=== PATIENT | male | born 1965 | race Caucasian/White ===

== ENCOUNTER 2020-11-30 23:06 | Emergency (ER) | payer BC, SELFPAY ==
[2020-11-30 23:32] VITALS: BP 180/115; PULSE 74; RESP 16; TEMP 36.8; O2SAT 98; BMI 31.4
--- NOTE | 2020-12-01 00:20 | ED_ITS ---
HPI - Animal Bite General Chief Complaint: Animal Bite Stated Complaint: DOG BITE Time Seen by Provider: 12/01/20 00:17 Source: patient Mode of arrival: ambulatory History of Present Illness HPI narrative: This is a 55-year-old male who presents after sustaining a dog bite to his left forearm that was his own personal dog, states dog is up-to-date on all vaccines, was trying to clip the nails and the dog struck out. He states he is up-to-date with his tetanus. Related Data Home Medications Medication Instructions Recorded Confirmed amlodipine 1 tab PO DAILY 11/30/20 11/30/20 atorvastatin 1 tab PO DAILY 11/30/20 11/30/20 labetalol tab PO 11/30/20 11/30/20 losartan 1 tab PO DAILY 11/30/20 11/30/20 Previous Rx's Medication Instructions Recorded amoxicillin-pot clavulanate 1 tab PO Q12H 5 Days #10 tab 12/01/20 [Augmentin] Allergies Allergy/AdvReac Type Severity Reaction Status Date / Time monosodium glutamate [MSG] Allergy Unknown HEADACHES Unverified 08/18/20 17:03 Review of Systems Review of Systems: Ten point review systems otherwise negative PMFSH Past Medical History Source: nursing notes reviewed Medical History HTN (hypertension) Stroke Social History Social History Advance Directives: No Physical Exam Vital Signs: Vital Signs: Last Vital Signs Temp 98.2 F 11/30/20 23:32 Pulse 74 11/30/20 23:32 Resp 16 11/30/20 23:32 BP 180/115 H 11/30/20 23:32 Pulse Ox 98 11/30/20 23:32 Body Mass Index 31.4 VITAL SIGNS: Reviewed. GENERAL: Well developed, well nourished, in no acute distress. NECK: Supple, no adenopathy LUNGS: Normal breath sounds. No adventitious sounds or accessory muscle use. S pO2<> CARDIOVASCULAR: Regular rate and rhythm without noted murmurs, no JVD or lower extremity edema. ABDOMEN: Soft, non-tender, non-distended with bowel sounds. No rigidity. No guarding. No palpable masses or hernias noted LEFT ARM: There is a 6 cm laceration perpendicular to line across the left dorsal forearm that is currently hemostatic, patient has complete range of motion, capillary refill is less than 3 seconds, neurovascularly intact otherwise distally. There is a noted contusion on the ventral surface of the forearm corresponding to where the dog bit the patient. NEUROLOGIC: Alert and oriented x 4. Course Course Course Narrative: Is a 55-year-old male with history and clinical presentation consistent with dog bite resulting in laceration of the left forearm and was provided with analgesics and is bite was repaired. Tetanus is up-to-date. Patient was discharged in stable condition with instructions to follow-up for suture removal in 5-7 days. Procedures Laceration Laceration 1: Site: upper extremity Side (If applicable): left Size (cm): 6 Description: linear Depth: involves muscle layer Local Anesthetic: lidocaine 2% and with epi Amount of anesthesia used (mL): 5 Pre-repair: wound explored, irrigated extensively and deep structures intact Skin layer closed with: nylon Size (cm): 4-0 Number of sutures: 7 Technique: simple, interrupted Subcutaneous layer closed with: vicryl Size: 4-0 Number of sutures: 4 Technique: simple, interrupted Discharge Plan Discharge Clinical Impression: Dog bite Qualifiers: Encounter type: initial encounter Qualified Code(s): W54.0XXA - Bitten by dog, initial encounter Patient Disposition: Home, Self-Care Instructions: Animal Bite (ED), Care For Your Stitches (ED), Laceration (ED) Additional Instructions: 1. Tylenol 1000 mg, orally, every 6 hours as needed for pain control. Do not exceed 4000 mg within 24 hours. 2. Ibuprofen 400 mg, orally with milk or food, every 6 hours as needed for pain control. You may take this along with the Tylenol for additional pain control. 3. Leave the dressing in place for 24 hours and then on removal he you are free to cleanse with soap and water, apply antibiotic ointment and recover with gauze or a large Band-Aid. 4. You will need to return to either your primary care provider or back to this emergency department for the removal of 7 sutures in 5-7 days. 5. Please return to the emergency department should she notice any swelling, discharge, or develops fevers/chills. Prescriptions: New amoxicillin-pot clavulanate [Augmentin] 875-125 mg tablet 1 tab PO Q12H 5 Days Qty: 10 RF: 0 No Action losartan 50 mg tablet 1 tab PO DAILY RF: 0 atorvastatin 80 mg tablet 1 tab PO DAILY RF: 0 labetalol 200 mg tablet PO RF: 0 amlodipine 10 mg tablet 1 tab PO DAILY RF: 0 Referrals: Renae Ace MD [Primary Care Provider] - 2 days (Removal of 7 sutures and 5-7 days.)
[2020-12-01] MEDS: Acetaminophen 325 MG TABLET 975 MG PO (00:40)
[2020-12-01] MEDS: Lidocaine HCl 2%/Epi 1:100,000 20 ML VIAL INFILTRATI (00:40)
[2020-12-01] MEDS: Ketorolac Tromethamine 15 MG/ML VIAL IM (00:40)
== END 2020-12-01 01:52 | disposition home or self-care (01) ==
PROVIDERS: Emergency Provider Student in an Organized Health Care Education/Training Program; PCP Internal Medicine
DX: S51.812A Laceration without foreign body of left forearm, initial encounter (principal); S50.12XA Contusion of left forearm, initial encounter; W54.0XXA Bitten by dog, initial encounter; Y93.F9 Activity, other caregiving; Y92.019 Unspecified place in single-family (private) house as the place of occurrence of the external cause; Y99.9 Unspecified external cause status
CPT/HCPCS: 12044; 90471; 96372; 99283; 99284; J1885

== ENCOUNTER 2024-03-18 16:11 | Emergency (ER) | payer OTHER, SELFPAY ==
[2024-03-18 16:13] VITALS: BP 223/115; PULSE 66; RESP 18; TEMP 36; O2SAT 97; BMI 30.7
--- NOTE | 2024-03-18 16:14 | ECG_ITS ---
Test Reason : high bp Blood Pressure : / mmHG Vent. Rate : 064 BPM Atrial Rate : 064 BPM P-R Int : 170 ms QRS Dur : 102 ms QT Int : 424 ms P-R-T Axes : 044 026 025 degrees QTc Int : 437 ms Normal sinus rhythm Normal ECG When compared with ECG of 12-OCT-2017 09:09, No significant changes seen Referred By: Esther Greenwood Electronically Signed By:ASHELY WADDELL
--- NOTE | 2024-03-18 16:17 | ED.GENADULT ---
HPI - General Adult General Chief complaint: General Medical Stated complaint: high blood pressure Time Seen by Provider: 03/18/24 22:06 Source: patient and family (Spouse) Mode of arrival: ambulatory Limitations: no limitations History of Present Illness HPI narrative: 58-year-old male with history of HTN since he was young for many years, patient is not compliant with his blood pressure medication for a year, went today for annual check with his physician and found to have a high value of BP then patient was sent to the ER for further evaluation, patient was prescribed nifedipine by PCP to his pharmacy that the patient did not pick it up, patient at this point has no headache, no blurry vision, no CP, no SOB, no abdominal pain, no weakness, no numbness. Patient admit to eating salty food and having unhealthy lifestyle with no exercising. Related Data Home Medications ?Medication ?Instructions ?Recorded ?Confirmed amlodipine 10 mg tablet 1 tab PO DAILY 11/30/20 11/30/20 atorvastatin 80 mg tablet 1 tab PO DAILY 11/30/20 11/30/20 labetalol 200 mg tablet tab PO 11/30/20 11/30/20 losartan 50 mg tablet 1 tab PO DAILY 11/30/20 11/30/20 Previous Rx's ?Medication ?Instructions ?Recorded amoxicillin 875 mg-potassium 1 tab PO Q12H 5 days #10 tabs 12/01/20 clavulanate 125 mg tablet (Augmentin) Allergies Allergy/AdvReac Type Severity Reaction Status Date / Time monosodium glutamate [MSG] Allergy Unknown HEADACHES Verified 03/18/24 16:18 Review of Systems Review of Systems: All other systems are reviewed and are negative Constitutional: Reports as per HPI and Reports no additional constitutional complaints Eyes: Reports as per HPI and Reports no additional eye complaints Reports system reviewed and no additional complaints, except as documented Cardiovascular: Reports as per HPI and Reports no additional cardiovascular complaints Respiratory: Reports as per HPI and Reports no additional respiratory complaints Gastrointestinal: Reports as per HPI and Reports no additional gastrointestinal complaints Genitourinary: Reports no additional female genitourinary complaints Musculoskeletal: Reports no additional musculoskeletal complaints Skin/Breast: Reports system reviewed and no additional complaints, except as docu Psychiatric: Reports no additional psychiatric complaints Endocrine: Reports no additional endocrine complaints Hematologic/Lymphatic: Reports no additional hematologic/lymphatic complaints Allergic/Immunologic: Reports no additional allergic/immunologic complaints Reports system reviewed and no additional complaints, except as documented and Reports Abnormal speech present FORMERLY [facility], [facility] Past Medical History Medical History Stroke HTN (hypertension) Social History Social History Smoked in Last 30 Days: No Use of substances other than those prescribed or required for medical reasons: Yes Substance Use Type: Marijuana Advance Directives: No Advance Directives Information Provided: No Physical Exam ED Vital Signs: Vital Signs - 24 hr 03/18/24 16:13 03/18/24 20:11 03/18/24 20:16 Temperature 96.8 F 98.7 F Pulse Rate 66 54 Respiratory Rate 18 16 Blood Pressure 223/115 H 223/109 H 225/119 H Pulse Oximetry 97 97 Oxygen Delivery Method Room Air Room Air 03/18/24 23:21 03/18/24 23:45 03/19/24 00:28 Temperature Pulse Rate 54 Respiratory Rate 16 Blood Pressure 218/116 H 207/114 H 212/116 H Pulse Oximetry 98 Oxygen Delivery Method Room Air 03/19/24 02:15 Temperature Pulse Rate 62 Respiratory Rate 16 Blood Pressure 205/114 H Pulse Oximetry 96 Oxygen Delivery Method Room Air BMI result Body Mass Index 30.7 Vital signs have been reviewed and appear to be correct. Blood pressure elevated. Heart rate normal. Respiratory rate normal. Temperature normal. Oxygen saturation normal. Appearance: Alert. Oriented X3. No acute distress. Head: Normal external exam. Normocephalic. Atraumatic. No [place] signs noted. No raccoon eyes noted Eyes: PERRLA. EOMI. Conjunctiva and sclera normal. Eyelids normal. ENT: TM's Normal. Pharynx normal. Uvula midline. Moist mucous membranes. No trismus noted. No drooling noted. No muffled voice noted. Neck: Normal inspection. Neck supple. FROM. No adenopathy. Thyroid Normal. No meningeal signs. No neck mass noted. CVS: Normal heart rate and rhythm. Heart sound normal. No murmurs noted. Pulses normal throughout. Respiratory: No respiratory distress. Painless inspiration. Breath sounds normal. No wheezes/rales/rhonchi noted. Chest nontender. No accessory muscle usage noted or decreased air movement noted. Abdomen: Soft and nontender. Bowel sounds normal in all 4 quadrants. No distention noted. No organomegaly noted. No visible injury noted. Back: No CVA tenderness. Full range of motion noted. Skin: Skin warm and dry. Normal skin color. Normal skin turgor. No rashes/lesions/lacerations noted. Extremities: No lower extremity edema. Extremities exhibit normal range of motion. Extremities nontender. Neuro: Oriented X 3. Cranial nerve exam: II-XII are grossly intact No motor deficit. No sensory deficit. Reflexes normal. Course Course Course Narrative: RME:? 58-year-old male with pmhx significant for uncontrolled HTN here from PCP office for elevated BP. admits he self discontinued previous BP meds 2 1/1 yrs ago because they were making him sick. has not been on BP meds since. presented to PCP today and was noted to have elevated BP. they sent a new BP med to pharmacy which he has not yet picked up. was advised to come to the ED instead. denies headache, dizziness, chest pain, shortness of breath, vision changes. bp 223/115 in triage. Labs, EKG ordered. Full HPI, ROS and PE to be performed by the primary ED provider. Reevaluation(s) Reevaluation #1: Asymptomatic high blood pressure with unhealthy lifestyle patient was instructed to take his blood pressure regularly, started to exercise, cut down on salt in his diet, and exercise. 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 Patient is asymptomatic, however risk of stroke, ACS was discussed with the patient. Time: 22:21 Reevaluation #2: Remained asymptomatic with high blood pressure slight improvement of blood pressure 205/114. Will discharge the patient as discussed with the patient and follow-up with PCP and take his medication. Time: 02:38 Medications Administered Discontinued Medications Generic Name Dose Route Start Last Admin Trade Name Freq PRN Reason Stop Dose Admin Amlodipine Besylate 5 mg 03/19/24 00:29 03/19/24 01:30 Amlodipine Besylate 5 Mg Tablet PO 03/19/24 00:30 5 mg ONCE ONE Administration Protocol Nifedipine 60 mg 03/18/24 22:20 03/18/24 22:57 Nifedipine Er 30 Mg Tab.Er.24 PO 03/18/24 22:21 60 mg ONCE ONE Administration Protocol Medical Decision Making Differential Diagnosis Differential Diagnoses: The differential diagnosis associated with the presentation includes (Essential hypertension, complicated hypertension electrolyte derangement, severe anemia.) Admission/Observation Consideration of admission/observation: Escalation of care including admission/observation considered Lab Data MDM Lab Attestation statement: I reviewed the patient's lab results. 03/18/24 16:36 03/18/24 16:36 Labs: Lab Results 03/18/24 Range/Units 16:36 WBC 6.1 (4.8-10.8) X10*3/uL RBC 5.06 (4.60-5.80) X10*6/uL Hgb 16.2 (14.0-18.0) g/dl Hct 43.7 (42.0-52.0) % MCV 86.4 (80.0-98.0) fL MCH 32.0 (27.0-33.0) pg MCHC 37.1 H (31.0-36.0) g/dl RDW 11.8 (11.0-16.0) % Plt Count 142 L (160-400) X10*3/uL MPV 9.8 (9.4-12.4) fL Immature Gran % (Auto) 0.2 (0.0-0.4) % Neut % (Auto) 65.4 (45-73) % Lymph % (Auto) 24.6 (20-40) % [place] % (Auto) 7.1 (2-11) % Eos % (Auto) 2.0 (0-4) % Baso % (Auto) 0.7 (0-2) % Lymph # (Auto) 1.5 (1.2-4.9) X10*3/uL [place] # (Auto) 0.4 (0.1-1.2) X10*3/uL Eos # (Auto) 0.1 (0.0-0.4) X10*3/uL Baso # (Auto) 0.0 (0.0-0.2) X10*3/uL Abs Immat Gran (auto) 0.01 (0.00-0.03) X10*3/uL Absolute Neuts (auto) 4.0 (2.0-8.3) x10*3/uL Absolute Nucleated RBC 0.000 (0.0-0.012) X10*3/uL Nucleated RBC % (auto) 0.0 (0.0-0.2) /100WBC Sodium 141 (135-145) mmol/L Potassium 3.6 (3.3-5.1) mmol/L Chloride 104 (96-108) mmol/L Carbon Dioxide 31 H (22-29) mmol/L Anion Gap 10 L (12-20) BUN 11 (9-16) mg/dL Creatinine 0.98 (0.5-1.4) mg/dL Estim Creat Clear Calc 100.0 Estimated GFR > 60 Random Glucose 118 H (60-115) mg/dL Calcium 9.4 (8.4-10.2) mg/dL Magnesium 2.3 (1.6-2.6) mg/dL Total Bilirubin 1.0 (0.0-1.0) mg/dL AST 20 (5-37) U/L ALT 27 (0-40) U/L Alkaline Phosphatase 79 (39-117) U/L Troponin I High Sens 15.0 (<3.5-35.0) ng/L Total Protein 7.3 (6.5-8.0) g/dL Albumin 4.5 (3.5-5.0) g/dL Independent Interpretation I performed an independent interpretation of an: EKG (Normal sinus rhythm at 64 beats per minutes, normal axis deviation, LVH, no significant change from previous EKG.) Discharge Plan Discharge Clinical Impression: Essential hypertension Patient Disposition: Home, Self-Care Instructions: Hypertension (ED) Additional Instructions: As we discussed modify your lifestyle, start exercising, decrease salt in your diet, drink plenty of water, follow-up with your PCP periodically every 3 months, take her medication regularly, monitor your blood pressure at home using blood pressure machine. Seek immediate medical attention for headache, weakness, numbness, blurry vision, chest pain, or difficulty breathing. Prescriptions: No Action losartan 50 mg tablet 1 tab PO DAILY atorvastatin 80 mg tablet 1 tab PO DAILY labetalol 200 mg tablet PO amlodipine 10 mg tablet 1 tab PO DAILY amoxicillin-pot clavulanate [Augmentin] 875-125 mg tablet 1 tab PO Q12H 5 Days Qty: 10 0RF Referrals: Lebron Shi MD [Primary Care Provider] - Print Language: Cypriot
[2024-03-18 16:39] LABS: MANUAL DIFF FLAG NO
--- NOTE | 2024-03-18 16:41 | MHC.EDTECH ---
PATIENT BLOOD DRAWN AND SENT TO LAB ,EKG TAKEN AND WAS READ BY PROVIDER .
--- OUTSIDE RECORDS SUMMARY | 2024-03-18 16:42 | XMS_ITS | Summary of Care ---
Author Organization [facility] Address [address] [place] [address]- Encounter 10/14/17 - 10/22/17 [facility] [address] [place] [address]- Discharge Diagnosis: HTN - Hypertension Discharge Disposition: Discharged to Home or Self Care Attending Physician: Georgina Wells MD Vital Signs Most recent to oldest [Reference Range]: 1 2 3 Temperature Oral F [96.4-99.1 DegF] 96.8 DegF (10/22/17 5:58 AM) 97.7 DegF (10/21/17 4:00 PM) 96.7 DegF (10/21/17 5:59 AM) Peripheral Pulse Rate [60-100 bpm] 64 bpm (10/22/17 5:02 AM) 76 bpm (10/21/17 8:35 PM) 64 bpm (10/21/17 4:00 PM) Respiratory Rate [14-20 br/min] 18 br/min (10/22/17 5:58 AM) 20 br/min (10/21/17 4:00 PM) 18 br/min (10/21/17 5:59 AM) Blood Pressure [90-140/60-90 mmHg] 122/80mmHg (10/22/17 5:02 AM) 135/77mmHg (10/21/17 8:35 PM) 121/68mmHg (10/21/17 4:00 PM) Extremity used to obtain blood pressure Right Arm (10/18/17 4:17 PM) Right Arm (10/14/17 11:50 PM) Cuff Size. Medium (10/14/17 11:50 PM) Diastolic Blood Pressure with Activity [60-90 mmHg] 82 mmHg (10/21/17 9:00 AM) 92 mmHg *HI* (10/17/17 1:00 PM) 94 mmHg *HI* (10/16/17 11:00 AM) Peripheral Pulse Rate with Activity 78 bpm (10/21/17 9:00 AM) 70 bpm (10/17/17 1:00 PM) 77 bpm (10/15/17 10:00 AM) Systolic Blood Pressure with Activity [90-140 mmHg] 122 mmHg (10/21/17 9:00 AM) 176 mmHg *HI* (10/17/17 1:00 PM) 175 mmHg *HI* (10/16/17 11:00 AM) Vital Signs Additional Information seated at rest (10/21/17 9:00 AM) Vitals taken mid tx session with no s/s of distress (10/18/17 9:00 AM) seated at rest (10/17/17 1:00 PM) Vital Signs w/ Activity Additional Info following activity, nonsymptomatic (10/17/17 1:00 PM) following 150ft gait 189/[address] negotiation non symptomatic throughout 5 min rest then 167/105 (10/16/17 11:00 AM) following bed mobility (10/15/17 10:00 AM) Temperature Oral [35.8-37.3 DegC] 36 DegC (10/22/17 5:58 AM) 36.5 DegC (10/21/17 4:00 PM) 35.9 DegC (10/21/17 5:59 AM) Problem List Condition Effective Dates Status Health Status Inform ant HTN - Hypertension(Confirmed) Active Allergies, Adverse Reactions, Alerts Substance Reaction Severity Status Strawberries Active Medications acetaminophen 325 mg oral tablet 650 mg = 2 tab, Tab, Oral, q4hr PRN, 0 Refill(s), PAIN (Scale 1-3) Start Date: 10/21/17 Status: Ordered acetaminophen 325 mg oral tablet 650 mg = 2 tab, Tab, Oral, q4hr PRN, 0 Refill(s), Other (see comment) Start Date: 10/21/17 Status: Ordered aspirin 81 mg oral delayed release tablet 81 mg = 1 tab, Tab-EC, Oral, Daily, 0 Refill(s) Start Date: 10/21/17 Status: Ordered hydrALAZINE 25 mg oral tablet 25 mg = 1 tab, Tab, Oral, TID, 90 tab, 0 Refill(s), Print Requisition Start Date: 10/21/17 Status: Ordered labetalol 200 mg oral tablet 200 mg = 1 tab, Tab, Oral, TID, 90 tab, 0 Refill(s), Print Requisition Start Date: 10/21/17 Status: Ordered Lipitor 40 mg oral tablet 80 mg = 2 tab, Tab, Oral, qPM, 60 tab, 0 Refill(s), Print Requisition Start Date: 10/21/17 Status: Ordered MiraLax 17 gm = 1 EA, Powder, Oral, Daily, 0 Refill(s) Start Date: 10/21/17 Status: Ordered Norvasc 10 mg oral tablet 10 mg = 1 tab, Tab, Oral, QHS, 30 tab, 0 Refill(s), Print Requisition Start Date: 10/21/17 Status: Ordered Protonix 40 mg oral delayed release tablet 40 mg = 1 tab, Tab-DR, Oral, Before breakfast, 30 tab, 0 Refill(s), Print Requisition Start Date: 10/21/17 Status: Ordered Results LABORATORY Most recent to oldest [Reference Range]: 1 2 Estimated Creatinine Clearance 91.48 mL/ min (10/19/17 7:13 AM) 91.48 mL/min (10/16/17 6:32 PM) Creatinine Level 1.05 mg/dL (10/15/17 6:32 PM)
[2024-03-18 16:50] LABS: Basophils Percent Auto 0.7 % (0-2); Eosinophils Absolute Auto 0.1 X10*3/uL (0.0-0.4); Hematocrit 43.7 % (42.0-52.0); Hemoglobin 16.2 g/dl (14.0-18.0); Imm Gran Abs Auto 0.01 X10*3/uL (0.00-0.03); Imm Gran Pct Auto 0.2 % (0.0-0.4); Lymphocytes Absolute Auto 1.5 X10*3/uL (1.2-4.9); Lymphocytes Percent Auto 24.6 % (20-40); Mean Corpuscular HGB Conc 37.1 g/dl (31.0-36.0); Mean Corpuscular Volume 86.4 fL (80.0-98.0); Mean Platelet Volume 9.8 fL (9.4-12.4); Monocytes Absolute Auto 0.4 X10*3/uL (0.1-1.2); Monocytes Percent Auto 7.1 % (2-11); Neutrophils Percent Auto 65.4 % (45-73); Platelet Count 142 X10*3/uL (160-400); Red Blood Count 5.06 X10*6/uL (4.60-5.80); Red Cell Distribution Width 11.8 % (11.0-16.0); White Blood Count 6.1 X10*3/uL (4.8-10.8)
[2024-03-18 16:57] LABS: Alanine Aminotransferase 27 U/L (0-40); Albumin Level 4.5 g/dL (3.5-5.0); Alkaline Phosphatase 79 U/L (39-117); Anion Gap 10 (12-20); Aspartate Amino Transferase 20 U/L (5-37); Blood Urea Nitrogen 11 mg/dL (9-16); Calcium 9.4 mg/dL (8.4-10.2); Carbon Dioxide 31 mmol/L (22-29); Chloride 104 mmol/L (96-108); Estimated Glomerular Filt Rate > 60; Glucose Random 118 mg/dL (60-115); Magnesium 2.3 mg/dL (1.6-2.6); Potassium 3.6 mmol/L (3.3-5.1); Sodium 141 mmol/L (135-145); Total Protein 7.3 g/dL (6.5-8.0)
[2024-03-18 20:11] VITALS: BP 223/109; PULSE 54; RESP 16; TEMP 37.1; O2SAT 97
[2024-03-18 20:16] VITALS: BP 225/119
--- NOTE | 2024-03-18 20:19 | PC.NURSE ---
pt re-evaluated for high bp. left and right arm taken and still 223/109 and 225/119. pt denies headache and states feels fine. discharge planner made aware.
--- NOTE | 2024-03-18 21:34 | PC.NURSE ---
Pt ca&ox4, no signs of distress. Pt denies pain and any other symptoms. Pt reports sent to ED by pcp d/t high B/P. Pt reports has not taken meds or seen a pcp since 2020. Pts B/P is 217/110. Pts family is at bedside. Pt changed into hospital attire. Plan of care ongoing.
--- NOTE | 2024-03-18 22:42 | PC.NURSE ---
Med not in Pyxis pharm called will bring med down. Plan of care ongoing.
[2024-03-18] MEDS: NIFEdipine ER 30 MG TAB.ER.24 60 MG PO (22:57)
--- NOTE | 2024-03-18 22:59 | PC.NURSE ---
Pt ca&ox4, no signs of distress. Pt medicated per mar. Plan of care ongoing.
[2024-03-18 23:21] VITALS: BP 218/116; PULSE 54; RESP 16; O2SAT 98
[2024-03-18 23:45] VITALS: BP 207/114
[2024-03-19 00:28] VITALS: BP 212/116
[2024-03-19] MEDS: amLODIPine Besylate 5 MG TABLET PO (01:30)
--- NOTE | 2024-03-19 01:47 | PC.NURSE ---
Pt medicated per jan. Plan of care ongoing.
[2024-03-19 02:15] VITALS: BP 205/114; PULSE 62; RESP 16; O2SAT 96
[2024-03-19 02:55] VITALS: BP 205/114; PULSE 62; RESP 16; TEMP 37; O2SAT 96
== END 2024-03-19 03:02 | disposition home or self-care (01) ==
PROVIDERS: Physician Assistant Medical; Emergency Provider Emergency Medicine; PCP Internal Medicine
DX: I10 Essential (primary) hypertension (principal); Z79.899 Other long term (current) drug therapy
CPT/HCPCS: 36415; 80053; 83735; 84484; 85025; 93005; 99283; 99284

== ENCOUNTER → 2024-03-18 16:14 | Outpatient (BNV) | payer OTHER, SELFPAY | PROVIDERS: Emergency Provider Emergency Medicine; PCP Internal Medicine; Visit Provider Internal Medicine | DX: I10 Essential (primary) hypertension (principal) | CPT/HCPCS: 93010 ==